=== PATIENT | female | born 1975 | race Caucasian/White ===

== ENCOUNTER 2024-04-20 17:23 | Emergency (ER) | payer OTHER ==
[~2024-04-20] VITALS: Ht 165.1 cm; Wt 95.2 kg
[2024-04-20] MEDS ORDERED: OxyCODONE 7.5 mg/Acetam 325 mg TABLET PO ONE (18:20)
[2024-04-20] MEDS ORDERED: HYDR1TAB94 PO (18:39)
[2024-04-20] MEDS ORDERED: CRUTCH2 XX (19:12)
== END 2024-04-20 19:18 | disposition home or self-care (01) ==
LOC: ER 17:23
DX: M79.661 Pain in right lower leg (principal)
CPT/HCPCS: 29515; 73590; 99283-25; A9270